=== PATIENT | female | born 1980 ===

== ENCOUNTER 2017-01-28 11:08 | Inpatient (IN) ==
[2017-01-28] MEDS ORDERED: MEPERIDINE 50 MG/1 ML VIAL IV PRN (11:21)
[2017-01-28] MEDS ORDERED: ONDANSETRON 4 MG/2 ML VIAL IV PRN ×2 (11:21→21:54)
[2017-01-28] MEDS ORDERED: hydrOXYzine HCL 25 MG/1 ML VIAL IM PRN (11:24)
[2017-01-28] MEDS ORDERED: CITRIC ACID/SODIUM CITRATE 30 ML UDCUP PO ONE (11:24)
[2017-01-28] MEDS ORDERED: PROMETHAZINE 25 MG/1 ML VIAL IM ONE (11:24)
[2017-01-28] MEDS ORDERED: FAMOTIDINE 20 MG/2 ML VIAL IV ONE (11:24)
[2017-01-28] MEDS ORDERED: ePHEDrine 50 MG/ML AMP IV PRN (11:24)
[2017-01-28] MEDS ORDERED: diphenhydrAMINE 50 MG/1 ML VIAL IV PRN (11:24)
[2017-01-28] MEDS ORDERED: LACTATED RINGERS 1,000 ML IV SCH (11:30)
[2017-01-28] MEDS ORDERED: OXYTOCIN/LR 20 UNIT/1,000 ML BAG IV SCH (11:30)
[2017-01-28] MEDS ORDERED: fentaNYL 2 MCG/ROPIV 0.2% EPID 150 ML EPIDURAL SCH (11:30)
[2017-01-28 12:24] LABS: Basophils % 0.2 % (0.0-0.8); Eosinophils # 0.1 10*3/uL (0.0-0.87); Hematocrit 31.5 VOL% (35.7-47.0); Hemoglobin 10.7 GM/DL (12.0-16.0); Immature Granulocytes % 0.3 %; Immature Granulocytes Absolute 0.02 #; Lymphocytes # 1.7 10*3/uL (1.4-4.0); Lymphocytes % 26.5 % (21.3-54.2); Mean Corpuscular Hemoglobin 33 PG (27-34); Mean Corpuscular Volume 95.7 FL (87-102); Mean Platelet Volume 11.5 FL (9.6-12.0); Monocytes # 0.4 10*3/uL (0.11-0.8); Monocytes % 5.6 % (1.7-12.7); Neutrophils # 4.1 10*3/uL (1.4-7.4); Neutrophils % 66.4 % (38.7-73.9); Platelet Count 124 T/CUMM (130-400); Red Blood Count 3.29 MC/CUMM (3.8-5.5); Red Cell Distribution Width 13.2 % (9.3-17.3); White Blood Count 6.2 T/CUMM (4-12)
[2017-01-28] MEDS ORDERED: AMPICILLIN INJ 2,000 MG in SODIUM CHLORIDE 0.9% 100 ML IV SCH (12:30)
[2017-01-28 12:54] LABS: Alanine Aminotransferase 26 U/L (13-56); Albumin 2.3 G/DL (3.4-5.0); Alkaline Phosphatase 139 U/L (45-117); Aspartate Amino Transferase 26 U/L (0-37); Bilirubin,Total < 0.39 MG/DL (0.2-1.0); Blood Urea Nitrogen 7 MG/DL (7-18); Calcium 7.9 MG/DL (8.5-10.1); Glucose 85 MG/DL (74-106); Osmolality,Calculated 277.3 MOS/KG (273-304); Sodium 141 MMOL/L (136-145); Total Protein 5.9 G/DL (6.4-8.3); Uric Acid 4.6 MG/DL (2.6-6.0)
[2017-01-28] MEDS ORDERED: DEXTROSE 5% LACTATED RINGERS 1,000 ML IV SCH (13:30)
[2017-01-28] MEDS ORDERED: INSULIN REGULAR 100 UNIT/ML SUBCUT SCH (14:15)
[2017-01-28] MEDS ORDERED: DEXTROSE 50% 25 GM/50 ML VIAL IV PRN ×2 (14:42→21:54)
[2017-01-28] MEDS ORDERED: GLUCAGON 1 MG VIAL IM PRN ×2 (14:42→21:54)
[2017-01-28 15:09] LABS: Apearance,Urine CLEAR (Clear); Bilirubin,Urine Negative (Negative); Blood, Urine Negative (Negative); Glucose,Urine (UA) Negative (Negative); Ketones,Urine Negative (Negative); Nitrite,Urine Negative (Negative); Protein,Urine Negative; RBC,Urine <1 /HPF (0-4); Squamous Epithelial Cell,Urine Occasional /HPF (0-10); Urine Color Yellow (Yellow); Urine Specific Gravity 1.008 (1.001-1.035); Urine Urobilinogen < 2.0 EU/DL (0.2-1.0); WBC,Urine <1 /HPF (0-6)
[2017-01-28] MEDS ORDERED: INSULIN NPH 100 UNIT/ML SUBCUT SCH (16:30)
[2017-01-28] MEDS ORDERED: OXYTOCIN/LR 30 UNIT/1,000 ML BAG IV ONE (17:56)
[2017-01-28 18:21] LABS: Cord Arterial Blood HCO3 20.7 MMOL/L
[2017-01-28 18:22] LABS: Cord Venous Blood HCO3 27.6 MMOL/L; Cord Venous Blood PCO2 60.6 MMHG; Cord Venous Blood PO2 20.8 MMHG
[2017-01-28] MEDS ORDERED: HYDROCORTISONE 2.5% RECTAL CREAM 30 GM TUBE TOP PRN (21:54)
[2017-01-28] MEDS ORDERED: BISACODYL 10 MG SUPP RECTAL PRN (21:54)
[2017-01-28] MEDS ORDERED: OXYTOCIN/LR 20 UNIT/1,000 ML BAG IV ONE (21:54)
[2017-01-28] MEDS ORDERED: LANOLIN 50% CREAM 0.3 OZ TUBE TOP PRN (21:54)
[2017-01-28] MEDS ORDERED: BENZOCAINE 20%/MENTHOL 0.5% SPRAY 56 GM CAN TOP PRN (21:54)
[2017-01-28] MEDS ORDERED: oxyCODONE/ACETAMINOPHEN 5-325 MG TABLET PO PRN ×2 (21:54)
[2017-01-28] MEDS ORDERED: MEASLES/MUMPS/RUBELLA VACCINE 0.5 ML VIAL SUBCUT ONE (21:54)
[2017-01-28] MEDS ORDERED: WITCH HAZEL PADS 100/JAR TOP PRN (21:54)
[2017-01-28] MEDS ORDERED: ACETAMINOPHEN 325 MG TABLET PO PRN (21:54)
[2017-01-28] MEDS ORDERED: DIPH/TET/ACEL PERT BOOSTER VACCINE 0.5 ML VIAL IM ONE (21:54)
[2017-01-28] MEDS ORDERED: RHO(D) IMMUNE GLOBULIN 300 MCG SYRINGE IM ONE (21:54)
[2017-01-28] MEDS: DOCUSATE SODIUM 100 MG CAPSULE PO SCH (22:18)
[2017-01-28] MEDS: IBUPROFEN 800 MG TABLET PO PRN (22:19)
[2017-01-29 05:17] LABS: Basophils % 0.2 % (0.0-0.8); Eosinophils % 0.2 % (0.00-10.9); Hematocrit 26.5 VOL% (35.7-47.0); Hemoglobin 8.9 GM/DL (12.0-16.0); Immature Granulocytes % 0.4 %; Immature Granulocytes Absolute 0.04 #; Lymphocytes # 1.5 10*3/uL (1.4-4.0); Lymphocytes % 15.9 % (21.3-54.2); Mean Corpuscular HGB Conc 33.6 GM/DL (32-36); Mean Corpuscular Hemoglobin 32 PG (27-34); Mean Corpuscular Volume 95.3 FL (87-102); Monocytes # 0.6 10*3/uL (0.11-0.8); Neutrophils # 7.4 10*3/uL (1.4-7.4); Neutrophils % 77.3 % (38.7-73.9); Platelet Count 119 T/CUMM (130-400); Red Blood Count 2.78 MC/CUMM (3.8-5.5); Red Cell Distribution Width 12.9 % (9.3-17.3); White Blood Count 9.5 T/CUMM (4-12)
[2017-01-29] MEDS ORDERED: INSULIN NPH 100 UNIT/ML SUBCUT SCH ×2 (07:30→16:30)
[2017-01-29] MEDS ORDERED: INSULIN ASPART PROTAMINE/ASPART 70/30 100 UNIT/ML SUBCUT SCH ×2 (07:30→16:30)
[2017-01-29] MEDS: INSULIN NPH 100 UNIT/ML SUBCUT SCH (08:24)
[2017-01-29] MEDS: IBUPROFEN 800 MG TABLET PO PRN ×2 (08:25→21:15)
[2017-01-29] MEDS: DOCUSATE SODIUM 100 MG CAPSULE PO SCH ×2 (08:25→21:13)
[2017-01-29] MEDS: FERROUS SULFATE 325 MG TABLET PO SCH ×2 (16:18→21:13)
[2017-01-30] MEDS: INSULIN NPH 100 UNIT/ML SUBCUT SCH (08:09)
[2017-01-30] MEDS: FERROUS SULFATE 325 MG TABLET PO SCH (09:53)
[2017-01-30] MEDS: DOCUSATE SODIUM 100 MG CAPSULE PO SCH (09:53)
[2017-01-30 10:41] VITALS: BP 125/84
== END 2017-01-30 14:45 | disposition home or self-care (01) | DRG 774 ==
LOC: N.LDOUT 11:08 → N.LD 11:09 → N.OB 23:25
PROVIDERS: ADMIT Obstetrics & Gynecology; ATTEND Obstetrics & Gynecology